=== PATIENT | female | born 2005 | race Caucasian/White ===

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

== ENCOUNTER → 2024-01-12 11:04 | Outpatient (BNVA) | payer MEDICAID, SELFPAY | PROVIDERS: Family Provider Nurse Practitioner; PCP Nurse Practitioner Family; Visit Provider Nurse Practitioner Family | DX: F41.9 Anxiety disorder, unspecified (principal); F32.A Depression, unspecified; F42.9 Obsessive-compulsive disorder, unspecified; E61.1 Iron deficiency | CPT/HCPCS: 80053; 80061; 82728; 83550; 84443; 85025 ==